=== PATIENT | male | born 1970 | race Two or more races ===

== ENCOUNTER 2016-08-07 10:31 | Emergency (ER) | payer MEDICARE, OTHER ==
[~2016-08-07] VITALS: Ht 165.1 cm; Wt 63.5 kg
[2016-08-07] MEDS ORDERED: KETOROLAC TROMETHAMINE 30 MG/ML INJ. IV ONE (11:15)
[2016-08-07] MEDS ORDERED: ASPIRIN ENTERIC COATED 325 MG TABLET.DR. PO ONE (11:15)
[2016-08-07] MEDS ORDERED: diazePAM 5 MG TABLET PO ONE (11:15)
[2016-08-07] MEDS ORDERED: oxyCODONE/APAP 5/325 1 TAB TABLET PO ONE (11:15)
[2016-08-07 11:25] LABS: BASO % 1 % (0-3); EOS % 6 % (0-3); HEMATOCRIT 45.1 % (39.0-53.0); HEMOGLOBIN 15.4 g/dL (13.0-17.5); LYMPH # 1.4 x10^3/uL (1.0-4.8); LYMPH % 35 % (24-48); MEAN CORPUSCULAR HEMOGLOBIN 31 pg (25-35); MEAN CORPUSCULAR HGB CONC 34 g/dL (31-37); MEAN CORPUSCULAR VOLUME 89 fL (79-100); MONO % 8 % (0-9); NEUT % 50 % (31-73); PLATELET COUNT 162 x10^3/uL (140-400); RED BLOOD COUNT 5.05 x10^6/uL (4.30-5.70); RED CELL DISTRIBUTION WIDTH 12.9 % (11.5-14.5); WHITE BLOOD COUNT 4.1 x10^3/uL (4.0-11.0)
[2016-08-07 11:34] LABS: CREATININE 0.8 mg/dL (0.7-1.3); GFR 103.6; POTASSIUM 3.9 mmol/L (3.5-5.1)
[2016-08-07 11:40] LABS: ALBUMIN 3.8 g/dL (3.4-5.0); MAGNESIUM 2.2 mg/dL (1.8-2.4); TOTAL BILIRUBIN 0.6 mg/dL (0.2-1.0); TOTAL PROTEIN 7.7 g/dL (6.4-8.2)
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
[2016-08-07 12:04] VITALS: BP 122/67
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
[2016-08-07] MEDS ORDERED: HYDR-971 PO (12:11)
--- NOTE | 2016-08-07 14:41 | EKG ---
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
== END 2016-08-07 12:25 | disposition home or self-care (01) ==
LOC: ER 11:33
DX: R07.81 Pleurodynia (principal); R06.00 Dyspnea, unspecified; M54.9 Dorsalgia, unspecified; Z98.890 Other specified postprocedural states
CPT/HCPCS: 36415; 71010; 80053; 82550; 83690; 83735; 83880; 84484; 85027; 93005; 96374; 99285; J1885

== ENCOUNTER 2017-12-16 10:08 | Emergency (ER) | payer OTHER ==
[~2017-12-16] VITALS: Ht 165.1 cm; Wt 63.5 kg
[~2017-12-16 10:08] MED LIST: HYDR-971 PO
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
[2017-12-16] MEDS ORDERED: IV NORMAL SALINE 1000ML BAG 1,000 ML IV ONE (10:30)
[2017-12-16 10:44] LABS: BASO % 0 % (0-3); EOS % 0 % (0-3); HEMATOCRIT 41.9 % (39.0-53.0); HEMOGLOBIN 14.9 g/dL (13.0-17.5); LYMPH # 0.8 x10^3/uL (1.0-4.8); LYMPH % 15 % (24-48); MEAN CORPUSCULAR HEMOGLOBIN 31 pg (25-35); MEAN CORPUSCULAR HGB CONC 36 g/dL (31-37); MEAN CORPUSCULAR VOLUME 88 fL (79-100); MONO # 0.5 x10^3/uL (0.0-1.1); MONO % 8 % (0-9); NEUT # 4.2 x10^3uL (1.8-7.7); NEUT % 76 % (31-73); PLATELET COUNT 161 x10^3/uL (140-400); RED BLOOD COUNT 4.76 x10^6/uL (4.30-5.70); RED CELL DISTRIBUTION WIDTH 13.1 % (11.5-14.5); WHITE BLOOD COUNT 5.6 x10^3/uL (4.0-11.0)
[2017-12-16 10:53] LABS: CALCIUM 8.9 mg/dL (8.5-10.1); CREATININE 0.9 mg/dL (0.7-1.3); GFR 90.1
[2017-12-16 10:56] LABS: BARBITURATES NEG (NEG); BENZODIAZEPINES NEG (NEG); CANNABINOIDS NEG (NEG); COCAINE NEG (NEG); METHADONE NEG (NEG); OPIATES NEG (NEG); PHENCYCLIDINE NEG (NEG)
[2017-12-16 10:57] LABS: ALBUMIN 3.7 g/dL (3.4-5.0); ALBUMIN/GLOBULIN RATIO 0.9 (1.0-1.7); TOTAL BILIRUBIN 0.6 mg/dL (0.2-1.0)
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
[2017-12-16 10:59] LABS: AMPHETAMINE/METHAMPHETAMINE NEG (NEG)
[2017-12-16 11:09] LABS: INFLUENZA A PATIENT NEGATIVE (NEGATIVE); INFLUENZA B PATIENT NEGATIVE (NEGATIVE)
[2017-12-16] MEDS ORDERED: POTASSIUM CHLORIDE 20 MEQ TABLET.ER. PO ONE (11:30)
[2017-12-16] MEDS ORDERED: KETOROLAC 30 MG/ML VIAL. IV ONE (12:00)
[2017-12-16 13:50] VITALS: BP 109/61
--- NOTE | 2017-12-16 14:23 | EKG ---
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
== END 2017-12-16 14:10 | disposition home or self-care (01) ==
LOC: ER 10:08
DX: R53.81 Other malaise (principal); R50.9 Fever, unspecified; R10.13 Epigastric pain; H53.8 Other visual disturbances; M54.9 Dorsalgia, unspecified
CPT/HCPCS: 36415; 71046; 80053; 80307; 82150; 82962; 83690; 84484; 85025; 87070; 87086; 87804; 87880; 93005; 96374; 99285; G0480; J1885; J7030; G0479

== ENCOUNTER 2020-05-30 03:42 | Emergency (ER) | payer SELFPAY ==
[~2020-05-30] VITALS: Ht 165.1 cm; Wt 64.1 kg
[~2020-05-30 03:42] MED LIST changes: +HYDR-3164 PO; -HYDR-971 PO
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
[2020-05-30] MEDS: ASPIRIN CHEWABLE 81 MG TABLET. PO ONE (04:12)
[2020-05-30] MEDS: IV NORMAL SALINE 1000ML BAG 1,000 ML IV ONE ×2 (04:13→05:01)
[2020-05-30 04:30] LABS: BASO % 0 % (0-3); EOS # 0.3 x10^3/uL (0.0-0.7); EOS % 6 % (0-3); HEMATOCRIT 46.9 % (39.0-53.0); HEMOGLOBIN 16.1 g/dL (13.0-17.5); LYMPH # 3.1 x10^3/uL (1.0-4.8); LYMPH % 53 % (24-48); MEAN CORPUSCULAR HEMOGLOBIN 31 pg (25-35); MEAN CORPUSCULAR HGB CONC 34 g/dL (31-37); MEAN CORPUSCULAR VOLUME 89 fL (79-100); MONO # 0.5 x10^3/uL (0.0-1.1); MONO % 8 % (0-9); NEUT # 1.9 x10^3/uL (1.8-7.7); NEUT % 33 % (31-73); PLATELET COUNT 184 x10^3/uL (140-400); RED BLOOD COUNT 5.28 x10^6/uL (4.30-5.70); RED CELL DISTRIBUTION WIDTH 13.3 % (11.5-14.5); WHITE BLOOD COUNT 5.8 x10^3/uL (4.0-11.0)
[2020-05-30 04:39] LABS: CALCIUM 9.1 mg/dL (8.5-10.1); GFR 78.8; POTASSIUM 3.1 mmol/L (3.5-5.1)
[2020-05-30 04:43] LABS: ALBUMIN 4.1 g/dL (3.4-5.0); ALBUMIN/GLOBULIN RATIO 1.1 (1.0-1.7); MAGNESIUM 2.3 mg/dL (1.8-2.4); TOTAL BILIRUBIN 0.8 mg/dL (0.2-1.0); TOTAL PROTEIN 7.9 g/dL (6.4-8.2)
--- NOTE | 2020-05-30 04:52 | RAD ---
XR CHEST 2V INDICATION: chest pain COMPARISON STUDY: None. FINDINGS: Lungs: Normal lung volume. No pulmonary mass or consolidation. The tracheobronchial tree and hilar st ructures are normal. Pleura: No pleural effusion or pneumothorax. Heart and Mediastinum: The cardiomediastinal silhouette is normal. The great vessels of the thorax ar e normal. Bones and Soft Tissues: Degenerative changes spine. IMPRESSION: No acute cardiopulmonary process. Electronically signed by: José Coley MD (05/30/2020 4:49 AM) [id number]
[2020-05-30] MEDS: fentaNYL PF VIAL 100 MCG/2 ML VIAL IVP ONE (05:01)
--- NOTE | 2020-05-30 05:02 | EKG ---
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
[2020-05-30 05:21] LABS: BILIRUBIN,URINE NEGATIVE (NEG); CLARITY,URINE CLEAR; COLOR,URINE YELLOW; NITRITE,URINE NEGATIVE (NEG); PH,URINE 6.5 (<5.0-8.0); PROTEIN,URINE NEGATIVE (NEG-TRACE); UROBILINOGEN,URINE 0.2 mg/dL (0.2 mg/dL)
[2020-05-30 05:26] LABS: BACTERIA,URINE 0 /HPF (0-FEW); RBC,URINE 0 /HPF (0-2); WBC,URINE 0 /HPF (0-4)
[2020-05-30 05:27] LABS: BARBITURATES NEG (NEG); BENZODIAZEPINES NEG (NEG); CANNABINOIDS POS (NEG); COCAINE NEG (NEG); METHADONE NEG (NEG); OPIATES NEG (NEG); PHENCYCLIDINE NEG (NEG)
[2020-05-30 05:28] LABS: AMPHETAMINE/METHAMPHETAMINE NEG (NEG)
--- NOTE | 2020-05-30 05:53 | EKG ---
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
[2020-05-30 08:20] VITALS: BP 107/60
--- NOTE | 2020-06-01 03:45 | EKG ---
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
== END 2020-05-30 08:46 | disposition home or self-care (01) ==
LOC: ER 03:42
DX: R07.89 Other chest pain (principal); R20.0 Anesthesia of skin; F41.8 Other specified anxiety disorders; Z98.890 Other specified postprocedural states
CPT/HCPCS: 36415; 71046; 80053; 80307; 81001; 83605; 83690; 83735; 83880; 84484; 85025; 85379; 93005; 96361; 96374; 99285; G0480; J3010; J7030